=== PATIENT | male | born 1960 | race American Indian/Alaskan Native ===

== ENCOUNTER 2017-08-29 11:40 | Emergency (ER) | payer SELFPAY ==
[2017-08-29 11:47] VITALS: TEMP 98.5
[2017-08-29 11:48] VITALS: BMI 29.6
--- NOTE | 2017-08-29 12:12 | ED PDOC ---
HPI: Back Time Seen by Provider: 08/29/17 12:00 Chief Complaint (Nursing): Back Pain Chief Complaint (Provider): Back Pain History Per: Patient History/Exam Limitations: no limitations Onset/Duration Of Symptoms: Days (x5) Current Symptoms Are (Timing): Still Present Additional Complaint(s): 57 year old male presents to the ED complaining of lower back pain radiating down the leg with onset of 5 days. Patient reports pain is worse with movement and denies any injury, incontinence, weakness, numbness, or tingling. Patient took Aleve without relief. PCP: none Past Medical History Reviewed: Historical Data, Nursing Documentation, Vital Signs Vital Signs: Last Vital Signs Temp 98.5 F 08/29/17 11:47 Pulse 86 08/29/17 11:47 Resp BP 98/64 L 08/29/17 11:47 Pulse Ox 95 08/29/17 11:47 - Medical History PMH: HTN, Hypercholesterolemia, Chronic Pain (Right ankle) - Surgical History Surgical History: Tonsillectomy - Family History Family History: States: Unknown Family Hx - Social History Current smoker - smoking cessation education provided: Yes Alcohol: Social Drugs: Denies - Home Medications Home Medications: Ambulatory Orders Medication Instructions Recorded Naproxen 500 mg PO BID #30 ect 03/09/14 Hydrocodone/Ibuprofen [Vicoprofen 1 each PO Q6 PRN #10 tablet 04/01/15 200-7.5 mg Tab] Cyclobenzaprine [Cyclobenzaprine 10 mg PO TID PRN #15 tab 08/29/17 HCl] Naproxen [Naprosyn] 500 mg PO BID PRN #15 tablet 08/29/17 - Allergies Allergies/Adverse Reactions: Allergies Allergy/AdvReac Type Severity Reaction Status Date / Time No Known Allergies Allergy Verified 04/01/15 10:59 Review of Systems ROS Statement: Except As Marked, All Systems Reviewed And Found Negative Genitourinary Male: Negative for: Incontinence Musculoskeletal: Positive for: Back Pain (lower) Neurological: Negative for: Weakness (or tingling), Numbness Physical Exam - Reviewed Nursing Documentation Reviewed: Yes Vital Signs Reviewed: Yes - Physical Exam Appears: Positive for: Non-toxic, No Acute Distress Head Exam: Positive for: ATRAUMATIC, NORMOCEPHALIC Skin: Positive for: Normal Color, Warm, Dry Eye Exam: Positive for: Normal appearance Neck: Positive for: Normal, Painless ROM Cardiovascular/Chest: Positive for: Regular Rate, Rhythm. Negative for: Murmur Respiratory: Positive for: Normal Breath Sounds. Negative for: Wheezing, Respiratory Distress Extremity: Positive for: Tenderness (lumbar paraspinal) Neurologic/Psych: Positive for: Alert, Oriented. Negative for: Motor/Sensory Deficits - ECG O2 Sat by Pulse Oximetry: 95 (RA) Pulse Ox Interpretation: Normal - Progress Re-evaluation Time: 14:10 Condition: Improved Medical Decision Making Medical Decision Making: Initial Impression: lower back pain Initial Plan: Lumbar spine X-ray Cyclobenzaprine 10mg PO Toradol 30mg IM Accession No. : [id number] Patient Name / ID : JIHAN PIKE / [id number] Exam Date : 08/29/2017 12:09:21 ( Approved ) Study Comment : Sex / Age : M / [id number] Creator : Estrada Ward MD Dictator : Estrada Ward MD Pumping Station Engineer : Pipe Maker : Estrada Ward MD Approver2 : Report Date : 08/29/2017 13:09:42 My Comment : PROCEDURE: Radiographs of the Lumbar Spine. HISTORY: L paraspinal pain COMPARISON: No prior. FINDINGS: BONES: Normal alignment. No listhesis. No fracture. DISC SPACES: Unremarkable. OTHER FINDINGS: Lower lumbar facet arthropathy IMPRESSION: Lower lumbar facet arthropathy Scribe Attestation: Documented by Abimael Moreno acting as a scribe for Hawa Rodriguez MD. Provider Scribe Attestation: All medical record entries made by the Scribe were at my direction and personally dictated by me. I have reviewed the chart and agree that the record accurately reflects my personal performance of the history, physical exam, medical decision making, and the department course for this patient. I have also personally directed, reviewed, and agree with the discharge instructions and disposition. Disposition - Clinical Impression Clinical Impression: Lumbar facet arthropathy - Disposition Referrals: [facility] [Outside] Disposition: Routine/Home Disposition Time: 14:22 Condition: IMPROVED Prescriptions: Cyclobenzaprine [Cyclobenzaprine HCl] 10 mg PO TID PRN #15 tab PRN Reason: Pain Naproxen [Naprosyn] 500 mg PO BID PRN #15 tablet PRN Reason: Pain, Moderate (4-7) Instructions: Low Back Pain in Adults, Sciatica Exercises Forms: [facility] (Mauritanian)
--- NOTE | 2017-08-29 13:11 | RAD ---
PROCEDURE: Radiographs of the Lumbar Spine. HISTORY: L paraspinal pain COMPARISON: No prior. FINDINGS: BONES: Normal alignment. No listhesis. No fracture. DISC SPACES: Unremarkable. OTHER FINDINGS: Lower lumbar facet arthropathy IMPRESSION: Lower lumbar facet arthropathy
[2017-08-29 14:30] VITALS: BP 110/68; PULSE 78; RESP 19
[2017-09-01 15:25] VITALS: O2SAT 95
== END 2017-08-29 14:30 | disposition home or self-care (01) ==
LOC: H.ER 11:40 → SUPCPDRO 11:40 → H.ER 14:30
DX: M54.31 Sciatica, right side (principal); E78.00 Pure hypercholesterolemia, unspecified; F17.200 Nicotine dependence, unspecified, uncomplicated; G89.29 Other chronic pain; I10 Essential (primary) hypertension
CPT/HCPCS: 72114; 96372; 99283; J1885

== ENCOUNTER 2017-12-23 20:46 | Emergency (ER) | payer OTHER ==
[2017-12-23 20:47] VITALS: BMI 29.6
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
[2017-12-23] MEDS: Lidocaine 5% Patch TD STA (23:55)
[2017-12-24] MEDS ORDERED: Lidocaine 5% Patch TD ONE (00:15)
[2017-12-24 00:56] VITALS: BP 130/78; PULSE 78; RESP 18; TEMP 98
[2017-12-24 11:13] VITALS: O2SAT 98
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
--- NOTE | 2017-12-24 15:31 | CT ---
Date of service: 12/23/2017 PROCEDURE: CT Lumbar Spine without contrast HISTORY: [facility] COMPARISON: Lumbar spine radiographs 08/29/2017. TECHNIQUE: Axial computed tomography images were obtained of the lumbar spine without the use of intravenous contrast. Coronal and sagittal reformatted images were created and reviewed. Radiation dose: Total exam DLP = 1453.44 mGy-cm. This CT exam was performed using one or more of the following dose reduction techniques: Automated exposure control, adjustment of the mA and/or kV according to patient size, and/or use of iterative reconstruction technique. FINDINGS: VERTEBRAE: Unremarkable. No fracture. Normal alignment again evident. Incidental note is made of a small cyst identified upper pole right kidney measuring 1.9 cm. DISCS/SPINAL CANAL/NEURAL FORAMINA: L1-2: Unremarkable. L2-3: Limited disc bulging is appreciated without significant central canal or neural foraminal stenosis. L3-4: Circumferential disc bulging is appreciated combined with mild to moderate facet joint degenerative arthropathy resulting in lateral recess stenosis bilaterally. No generalized central canal stenosis. Mild bilateral neural foraminal stenosis results. L4-5: A circumferential disc bulge is appreciated combining with moderate facet degenerative change resulting in mild central canal stenosis and mild bilateral neural foraminal stenosis. L5-S1: Limited circumferential disc bulging is appreciate without resulting in central canal stenosis though this descending S1 nerve roots are slightly encroached. No significant neural foraminal stenosis. Slight disc bulge asymmetry is noted toward the left with disc herniation not favored but not excluded on a limited basis. PARASPINAL SOFT TISSUES: Unremarkable. OTHER FINDINGS: None. IMPRESSION: 1. No acute fracture or spondylolisthesis identified. 2. Multilevel degenerative disc bulging is appreciated at the mid to inferior spine without severe stenosis. Findings seen worst at the L4-5 level where mild central stenosis identified due also in part to degenerative facet arthropathy. Slightly asymmetric disc bulge at L5-S1 is favored over broad-based left disc herniation though no significant generalized central canal stenosis results. Please see discussion above. 3. Incidental small right renal cyst identified.
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
== END 2017-12-24 | disposition home or self-care (01) ==
LOC: H.ER 20:46
DX: S39.012A Strain of muscle, fascia and tendon of lower back, initial encounter (principal); V03.10XA Pedestrian on foot injured in collision with car, pick-up truck or van in traffic accident, initial encounter; Y92.410 Unspecified street and highway as the place of occurrence of the external cause; E78.00 Pure hypercholesterolemia, unspecified; I10 Essential (primary) hypertension